=== PATIENT | male | born 1965 | race Caucasian/White ===

== ENCOUNTER 2016-03-29 03:19 | Emergency (ER) | payer OTHER ==
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
[2016-03-29] MEDS ORDERED: MORPHINE SULFATE 10 MG/ML SYRG ONE ×2 (04:29→04:53)
[2016-03-29] MEDS ORDERED: MORPHINE SULFATE 10 MG/ML SYRG IV ONE ×2 (04:40→05:11)
[2016-03-29] MEDS ORDERED: MIDAZOLAM HCL/PF 5 MG/ML VIAL ONE (05:07)
[2016-03-29] MEDS ORDERED: MIDAZOLAM HCL/PF 5 MG/ML VIAL IV ONE (05:11)
[2016-03-29 06:38] VITALS: BP 158/89
== END 2016-03-29 07:39 | disposition home or self-care (01) ==
LOC: ER 03:19
PROC: 0SSGXZZ Reposition Left Ankle Joint, External Approach (ICD-10-PCS; principal; 2016-03-29)
DX: S82.62XA Displaced fracture of lateral malleolus of left fibula, initial encounter for closed fracture (principal); W19.XXXA Unspecified fall, initial encounter; Y92.89 Other specified places as the place of occurrence of the external cause; Y99.0 Civilian activity done for income or pay; K21.9 Gastro-esophageal reflux disease without esophagitis

== ENCOUNTER 2016-04-06 14:22 | Inpatient (IN) | payer OTHER ==
[2016-04-06] MEDS ORDERED: MAG HYDROX/ALUMINUM HYD/SIMETH 30 ML UDC PO PRN (14:39)
[2016-04-06] MEDS ORDERED: ONDANSETRON HCL/PF 2 MG/ML VIAL IV PRN (14:39)
[2016-04-06] MEDS ORDERED: ACETAMINOPHEN 500 MG TABLET PO PRN (14:39)
[2016-04-06] MEDS ORDERED: MAGNESIUM HYDROXIDE 30 ML UDC PO PRN (14:39)
[2016-04-06] MEDS ORDERED: oxyCODONE HCL/ACETAMINOPHEN 1 TAB TABLET PO PRN ×2 (14:39)
[2016-04-06] MEDS ORDERED: PROMETHAZINE HCL 5 MG in DEXTROSE 5 % IN WATER 50 ML IV PRN ×2 (14:39)
[2016-04-06] MEDS ORDERED: MORPHINE SULFATE 2 MG/ML DISP.SYRIN IV PRN (14:39)
[2016-04-06] MEDS ORDERED: PIPERACILLIN SODIUM/TAZOBACTAM 3.375 GM in DEXTROSE 5 % IN WATER 100 ML IV SCH ×2 (14:45)
[2016-04-06] MEDS: NORMAL SALINE 1,000 ML IV PRN ×2 (15:30→22:20)
[2016-04-06] MEDS: NICOTINE 14 MG PATC TD SCH (16:18)
[2016-04-06] MEDS: VANCOMYCIN HCL 1 GM in DEXTROSE 5 % IN WATER 250 ML IV SCH ×2 (16:18)
[2016-04-06] MEDS ORDERED: NORMAL SALINE 1,000 ML IV ONE (18:50)
[2016-04-06] MEDS: LEVOFLOXACIN/D5W 150 ML IV SCH (18:55)
[2016-04-06] MEDS ORDERED: RINGERS SOLUTION,LACTATED 1,000 ML IV ONE (19:30)
--- NOTE | 2016-04-06 20:44 | OR ---
Operative Report - Dictated Report Narrative: Date: 04/06/2016 Surgeon: Matti Arteaga M.D. Train Control Electronic Technician: Doug Frank PA-C Anesthesia: Spinal Preoperative diagnosis: Right unstable trimalleolar ankle fracture with open wound over medial malleolus 2 cm x 2 cm Postoperative diagnosis: Right unstable trimalleolar ankle fracture with open wound over medial malleolus 2 cm x 2 cm Procedure: 1. Irrigation and debridement of left medial ankle wound, skin and subcutaneous tissue 2 cm x 2 cm 2. Placement of uniplanar ankle spanning external fixator 3. Application of wound vac Estimated blood loss: None Tourniquet time: 48 Minutes at 325 millimeters mercury Retained implants: [employer] Jet-X ankle spanning external fixator Specimens: None Complications: None Indications: Everardo is a 50-year-old female who sustained a ground-level fall resulting in a injury to the right ankle. They were seen in the emergency department with images obtained revealing the above injury. He was seen in my clinic a couple days later where he was noted to have severe soft tissue swelling and fracture blistering. He underwent repeat closed reduction in the office with placement of an unna boot and well padded AO splint. He was made strict non- weightbearing and counseled to aggressively elevate the L foot and ankle. He followed up 1 week later and was discovered to have developed a full thickness wound over the medial malleolus. I counseled him that I recommended I&D of his wound with wound vac application and placement of an ankle spanning external fixator to better temporarily stabilize his fracture to allow assessment of his wound and to let his soft tissues better heal until were amenable to definitive fixation. The risks, benefits, and treatment options were discussed with the patient. Risks were reviewed including , blood clots, nerve/tendon/blood vessel injury, wound complications, and need for additional procedures. Procedure: After a timeout, a spinal anesthetic was administered by the anesthesia provider without complication. Beanbag was utilized in order bump the operative leg and a well-padded tourniquet was applied to the operative thigh. The operative leg was placed on a bone foam ramp. The splint was removed and the leg was pre-scrubbed with chlorhexidine then prepped and draped in a standard sterile fashion. Extremity was gravity exsanguinated and tourniquet was inflated. Initial attention was turned to the medial ankle wound, this was full thickness and 2 cm in diameter. There was exposed subcutanous tissue but no exposed bone. The wound was mechanically debrided of non-viable tissue and copiously irrigated with 2 L of normal saline. Attention was then turned to the proximal tibial pins of the external fixator. These were drilled in a bicortical fashion in the proximal aspect of the tibial shaft at the appropriate width to fit the external fixator clamp. Pin depth was checked via fluoroscopy. Next we turned our attention to placing our calcaneal pin using a lateral fluoroscopic image. This was driven across the calcaneus from medial to lateral in the appropriate position. All pin sites were then dressed with Xeroform and 2 inch Mango rolls. The proximal clamp was placed with angled bars attached. 2 bars were then utilized to span the ankle from the proximal clamp bars to the calcaneal pin medial and laterally in an A-frame fashion. The ankle joint was then closed reduced and its position confirmed via fluoroscopy. The reduction was held while all clamps were tightened down. We again checked our reduction on AP and lateral and, after confirmation of our reduction, performed final tightening of all of our clamps. A wound vac sponge approx. 2 cm in diameterwas placed over the medial ankle wound and wound vac suction at 125 mmHg was applied. This demonstrated good seal. The lower leg was then wrapped with Sof-Rol and an Adrien wrap and the tourniquet was deflated. All sponge, sharp, and instrument counts were correct prior to closing. The patient was taken to the PACU in stable condition. Plan: Postoperatively the patient will remain on IV abx for cellulitis about the ankle and his open ankle wound. He will remain non-weightbearing with aggressive elevation of the L leg. Plan will be for definitive fixation of his ankle fracture once his soft tissues are amenable. We will attempt to treat his medial wound with wound vac dressing changes and healing by secondary intention, but I counseled the patient that this may require more definitive soft tissue coverage if it does not look like it's healing.
[2016-04-06] MEDS: SENNOSIDES/DOCUSATE SODIUM 1 TAB TABLET PO SCH (22:26)
[2016-04-06 22:27] LABS: Hematocrit 35.7 % (42.0-52.0); Hemoglobin 12.2 gm/dL (13.5-18.0); Mean Cell Volume 104.4 fl (78-100); Mean Corpuscular Hemoglobin 35.7 pg (27-31); Mean Corpuscular Hgb Conc 34.2 g/dl (32-36); Mean Platelet Volume 9.1 fl (6.0-9.5); Neutrophil # 4.1 K/mm3 (1.3-6.0); Neutrophil % 68.7 % (42-75.0); Platelet Count 193 K/mm3 (150-450); Red Blood Count 3.42 M/mm3 (4.7-6.0); Red Cell Distribution Width 12.6 % (11.5-14.0); White Blood Count 5.9 K/mm3 (4.0-10.5)
[2016-04-06 22:42] LABS: Albumin * 2.1 gm/dl (3.4-5.0); Anion Gap 8.3 mmol/L (6.8-13.8); BUN/Creatinine Ratio 9.1 (9.0-21.6); Bilirubin, Total 0.9 mg/dL (0.0-1.1); Ca. Corrected For Albumin 9.7 mg/dL (8.4-10.2); Calcium * 8.5 mg/dL (7.9-10.9); Carbon Dioxide 29.9 mmol/L (24-32.6); Potassium 4.2 mmol/L (3.4-4.6); Total Protein 6.5 gm/dL (6.2-8.2)
[2016-04-07] MEDS: VANCOMYCIN HCL 1 GM in DEXTROSE 5 % IN WATER 250 ML IV SCH ×4 (03:35→15:20)
[2016-04-07 05:29] LABS: Hematocrit 37.9 % (42.0-52.0); Hemoglobin 13.2 gm/dL (13.5-18.0); Mean Corpuscular Hemoglobin 35.9 pg (27-31); Mean Corpuscular Hgb Conc 34.8 g/dl (32-36); Mean Platelet Volume 9.1 fl (6.0-9.5); Neutrophil # 4.6 K/mm3 (1.3-6.0); Neutrophil % 77.8 % (42-75.0); Platelet Count 184 K/mm3 (150-450); Red Blood Count 3.68 M/mm3 (4.7-6.0); Red Cell Distribution Width 12.5 % (11.5-14.0); White Blood Count 5.9 K/mm3 (4.0-10.5)
[2016-04-07 05:57] LABS: Anion Gap 14.1 mmol/L (6.8-13.8); Calcium * 8.7 mg/dL (7.9-10.9); Carbon Dioxide 25.8 mmol/L (24-32.6); Potassium 3.9 mmol/L (3.4-4.6)
[2016-04-07 05:58] LABS: Albumin * 2.2 gm/dl (3.4-5.0); Ca. Corrected For Albumin 9.8 mg/dL (8.4-10.2); Chol/HDL Risk Ratio 3.5 mg/dL (3.3-5.0); Total Protein 6.9 gm/dL (6.2-8.2)
[2016-04-07 05:59] LABS: Hemoglobin A1C 4.7 % (4.00-6.0)
--- NOTE | 2016-04-07 06:07 | CONS ---
[facility] - General Date of Service: 04/07/16 Narrative: Consulted for medical management Source: patient Exam Limitations: no limitations - History of Present Illness Initial Comments: The 12th of this month fell and fractured left ankle. Had f/u appointment and was found to have fracture blisters from splint. 04/07/16 had an i/d completed with external fixation placed and wound vac. Allergies/Adverse Reactions: Allergies Penicillins Allergy (Verified 03/06/16 20:16) tetanus & diphtheria toxoids Allergy (Verified 03/06/16 20:16) Home Medications: Home Medications Medication Instructions Recorded Last Taken Albuterol Sulfate [Proair Hfa] 1 - 2 puff IH Q4H PRN 03/06/16 Unknown Budesonide/Formoterol Fumarate 2 puff IH BID 03/06/16 Unknown [Symbicort 160-4.5 Mcg Inhaler] Omeprazole [Prilosec] 40 mg PO DAILY 03/06/16 Unknown Loratadine [Claritin] 10 mg PO DAILY 04/06/16 Unknown - Patient's Past Medical History Patient History - Medical: Anxiety, GERD Patient History - Cardiac/Respiratory: Asthma Patient History - Cancer: No Hx of Cancer Patient History - Surgical Procedures: T & A, Other - i/d of ankle 04/07/16 Patient History - Other: None - Family History Grandfather-Paternal Family History - Medical: Family History - Cardiac/Respiratory: Coronary Heart Disease, COPD, Myocardial Infarction Family History - Cancer: No pertinent family hx Grandfather-Maternal Family History - Medical: Family History - Cardiac/Respiratory: Coronary Heart Disease Family History - Cancer: No pertinent family hx Father Family History - Medical: Diabetes Type 2 Insulin Dependent Family History - Cardiac/Respiratory: No pertinent hx Family History - Cancer: No pertinent family hx - Social History Living Situations: home Does anyone smoke in the home?: No Smoking Status: Never smoker Have you smoked in the past 12 months: No Do you dip or chew tobacco: Yes Patient requests Smoking Cessation Consult: Yes Initiate information on Smoking Cessation: Yes Alcohol Use: heavy - case a day-states has decreased to a couple beers a day Drug Use: none - Immunizations Immunizations Up to Date: Yes Hx Pneumococcal Vaccination: No History of Influenza Vaccine: No Medications - Medications Current Medications: Current Medications Sodium Chloride (Sodium Chloride 0.9%) 1,000 mls @ 125 mls/hr IV .Q8H PRN PRN Reason: HYDRATION Stop: 05/06/16 14:44 Last Admin: 04/06/16 22:20 Dose: 125 mls/hr Vancomycin HCl 1 gm/ Dextrose/ (Water) 250 mls @ 140 mls/hr IV Q12H [facility] PRN Reason: Protocol Stop: 05/06/16 15:31 Last Admin: 04/07/16 03:35 Dose: 140 mls/hr Levofloxacin/Dextrose (Levaquin) 150 mls @ 100 mls/hr IV Q24H [facility] Stop: 05/06/16 17:01 Last Admin: 04/06/16 18:55 Dose: 150 mls Nicotine (Nicoderm) 14 mg TD Q24H [facility] Stop: 05/06/16 16:01 Last Admin: 04/06/16 16:18 Dose: 14 mg Oxycodone/Acetaminophen (Percocet 5 Mg/325 Mg) 1 tab PO Q4H PRN PRN Reason: Moderate Pain Stop: 05/06/16 14:40 Last Admin: 04/07/16 05:12 Dose: 1 tab Oxycodone/Acetaminophen (Percocet 5 Mg/325 Mg) 2 tab PO Q4H PRN PRN Reason: Moderate Pain Stop: 05/06/16 14:40 Last Admin: 04/06/16 17:52 Dose: 2 tab Senna/Docusate Sodium (Senokot-S) 2 tab PO HS [facility] Stop: 05/06/16 21:01 Last Admin: 04/06/16 22:26 Dose: Not Given Review of Systems - Review of Systems Generalized/Overall Review: Present: No Symptoms Reported EENTM: Present: No Symptoms Reported Respiratory: Present: No Symptoms Reported Cardiac: Present: No Symptoms Reported Abdominal: Present: No Symptoms Reported Genitourinary: Present: No Symptoms Reported Musculoskeletal: Present: Other - left ankle pain, swelling, and eccymossis to toes Neurological: Present: No Symptoms Reported Skin: Present: No Symptoms Reported Physical Examination - Exam Vital Signs: Vital Signs - Last Taken Temp 37.2 C 04/07/16 04:03 Pulse 95 04/07/16 05:00 Resp 18 04/07/16 05:00 BP 151/94 04/07/16 05:00 Pulse Ox 98 RA 04/07/16 05:00 O2 Oxygen Delivery Method Room Air Constitutional: Present: Alert, Oriented x3, Cooperative, No distress ENT Exam: Present: normal ENT inspection, hearing grossly normal Eye Exam: bilateral eye: normal inspection, PERRL Respiratory: Present: chest non-tender, lungs clear, no respiratory distress, decreased breath sounds Cardiovascular/Chest: Present: normal peripheral pulses, regular rate, rhythm, no chest tenderness, no edema, no murmur Peripheral Pulses: dorsalis-pedis (R): 2+, dorsalis-pedis (L): 2+, radial (R): 2 +, radial (L): 2+ Abdomen: Present: Normal bowel sounds, soft, nontender, nondistended, no rebound tenderness Extremity: Present: normal range of motion, normal capillary refill, lower extremity edema, leg pain, other - left ankle in external fixation, wound vac in place. Eccoymosis noted to toes Skin Exam: Present: normal color, warm/dry, no cyanosis Neurologic: Present: no motor/sensory deficits, alert, oriented x 3 Appearance: Present: appropriate appearance, appropriate insight, neat Eye contact: Present: cooperative, good eye contact Thoughts: Present: normal thought pattern, no apparent hallucination - Results and Findings: Lab/Microbiology results last 24 hrs: Abnormal/Pending Laboratory Last 24 HRS 04/07/16 04/07/16 04/06/16 05:12 05:12 22:11 RBC 3.68 L Hgb 13.2 L Hct 37.9 L MCV 103.0 H MCH 35.9 H Immature Gran % (Auto) 0.50 H Immature Gran # (Auto) Neutrophils % 77.8 H Lymphocytes % 7.4 L Monocytes % 12.2 H Lymphocytes # 0.4 L Anion Gap 14.1 H Albumin 2.2 L 2.1 L LDL Cholesterol 63 L HDL Cholesterol 30 L 04/06/16 22:11 RBC 3.42 L Hgb 12.2 L Hct 35.7 L MCV 104.4 H MCH 35.7 H Immature Gran % (Auto) 0.70 H Immature Gran # (Auto) 0.04 H Neutrophils % Lymphocytes % 11.3 L Monocytes % 16.5 H Lymphocytes # 0.7 L Anion Gap Albumin LDL Cholesterol HDL Cholesterol - Assessments/Findings (1) Fracture dislocation of ankle joint Diagnosis(s): Ankle fracture managed by Dr. Arteaga. Question if pt is diabetic. HgA1c 4.7, all glucoses have been within normal limits. All other laboratory findings without abnormality. Will continue to follow per request. Problem: Acute Qualifiers: Encounter type: initial encounter Fracture type: closed Laterality: left Qualified Code(s): S82.892A - Other fracture of left lower leg, initial encounter for closed fracture
--- NOTE | 2016-04-07 13:45 | PN ---
Subjective - Date and Time Seen Date: 04/07/16 Subjective Narrative: No acute events overnight. Pain controlled. No other complaints this am. Objective - Vitals Vitals: Last Vital Signs Temp 36.5 C 04/07/16 11:18 Pulse 89 04/07/16 11:18 Resp 18 04/07/16 11:18 BP 132/75 04/07/16 11:18 Pulse Ox 94 04/07/16 11:18 - Abnormal Lab Findings Abnormal Lab Findings: Abnormal Lab Results 04/06/16 04/06/16 04/07/16 Range/Units 22:11 22:11 05:12 RBC 3.42 L 3.68 L (4.7-6.0) M/mm3 Hgb 12.2 L 13.2 L (13.5-18.0) gm/dL Hct 35.7 L 37.9 L (42.0-52.0) % MCV 104.4 H 103.0 H (78-100) fl MCH 35.7 H 35.9 H (27-31) pg Immature Gran % (Auto) 0.70 H 0.50 H (0.001-0.429) % Immature Gran # (Auto) 0.04 H (0.000-0.0310) K/mm3 Neutrophils % 77.8 H (42-75.0) % Lymphocytes % 11.3 L 7.4 L (20-51) % Monocytes % 16.5 H 12.2 H (0.0-9) % Lymphocytes # 0.7 L 0.4 L (1.5-3.5) k/mm3 Anion Gap (6.8-13.8) mmol/L Albumin 2.1 L (3.4-5.0) gm/dl LDL Cholesterol (70-130) mg/dL HDL Cholesterol (40-60) mg/dL 04/07/16 Range/Units 05:12 RBC (4.7-6.0) M/mm3 Hgb (13.5-18.0) gm/dL Hct (42.0-52.0) % MCV (78-100) fl MCH (27-31) pg Immature Gran % (Auto) (0.001-0.429) % Immature Gran # (Auto) (0.000-0.0310) K/mm3 Neutrophils % (42-75.0) % Lymphocytes % (20-51) % Monocytes % (0.0-9) % Lymphocytes # (1.5-3.5) k/mm3 Anion Gap 14.1 H (6.8-13.8) mmol/L Albumin 2.2 L (3.4-5.0) gm/dl LDL Cholesterol 63 L (70-130) mg/dL HDL Cholesterol 30 L (40-60) mg/dL - Exam Exam Narrative: Gen: A&O x4, NAD Resp: breathing nonlabored MSK: LLE--> ankle ex fix in place, wound vac holding suction, able to flex/ extend all toes, SILT, cap refill brisk Assessment/Plan Plan Narrative: 50 yo M w/ unstable trimalleolar ankle fracture and open medial ankle wound with concern for cellulitis, s/p I&D, ex fix placement, and wound vac 04/06/16. - NWB, aggressive elevation - reg diet - oral pain meds - continue abx - Plan: will likely d/c with wound vac Saturday and oral abx, plan to f/u with me periodically until soft tissues are amenable to definitive surgical fixation of his ankle fracture. - dispo: continue inpatient care
[2016-04-07] MEDS: NICOTINE 14 MG PATC TD SCH (15:21)
[2016-04-07] MEDS: LEVOFLOXACIN/D5W 150 ML IV SCH (17:24)
[2016-04-07] MEDS: NORMAL SALINE 1,000 ML IV PRN (19:03)
[2016-04-07] MEDS ORDERED: ALBUTEROL SULFATE 200 PUFF INHALER IH PRN (20:20)
[2016-04-07] MEDS ORDERED: CYCLOBENZAPRINE HCL 10 MG TABLET PO PRN (20:20)
[2016-04-07] MEDS: SENNOSIDES/DOCUSATE SODIUM 1 TAB TABLET PO SCH (20:21)
[2016-04-07] MEDS ORDERED: FLUTICASONE/SALMETEROL 14 PUFF DISK.W.DEV IH SCH (21:00)
--- NOTE | 2016-04-08 02:28 | PN ---
Subjective - Date and Time Seen Date: 04/08/16 Time: 06:36 Subjective Narrative: Pt without any issues over night. Accu checks dc'd pt refused and all have been within normal limits. Dr. Arteaga following for ankle fx. Objective - Review of Systems Generalized/Overall Review: Reports: No Symptoms Reported EENTM: Reports: No Symptoms Reported Respiratory: Reports: No Symptoms Reported Cardiac: Reports: No Symptoms Reported Abdominal: Reports: No Symptoms Reported Genitourinary Symptoms: Reports: No Symptoms Reported Musculoskeletal Complaints: Reports: Joint Swelling - ankle pain and swelling Neurological: Reports: No Symptoms Reported Skin: Reports: No Symptoms Reported Endocrine: Reports: No Symptoms Reported - Vitals Vitals: Last Vital Signs Temp 36.1 C L 04/07/16 19:39 Pulse 91 04/07/16 19:39 Resp 16 04/07/16 19:39 BP 149/90 04/07/16 19:39 Pulse Ox 96 04/07/16 19:39 - Abnormal Lab Findings Abnormal Lab Findings: Abnormal Lab Results 04/07/16 04/07/16 Range/Units 05:12 05:12 RBC 3.68 L (4.7-6.0) M/mm3 Hgb 13.2 L (13.5-18.0) gm/dL Hct 37.9 L (42.0-52.0) % MCV 103.0 H (78-100) fl MCH 35.9 H (27-31) pg Immature Gran % (Auto) 0.50 H (0.001-0.429) % Neutrophils % 77.8 H (42-75.0) % Lymphocytes % 7.4 L (20-51) % Monocytes % 12.2 H (0.0-9) % Lymphocytes # 0.4 L (1.5-3.5) k/mm3 Anion Gap 14.1 H (6.8-13.8) mmol/L Albumin 2.2 L (3.4-5.0) gm/dl LDL Cholesterol 63 L (70-130) mg/dL HDL Cholesterol 30 L (40-60) mg/dL - Exam Constitutional: Present: Alert, Oriented x3, Cooperative, No distress ENT Exam: Present: normal ENT inspection, hearing grossly normal Respiratory: Present: chest non-tender, lungs clear, normal breath sounds, no respiratory distress, decreased breath sounds Cardiovascular/Chest: Present: normal peripheral pulses, regular rate, rhythm, no chest tenderness, no edema, no murmur Abdomen: Present: Normal bowel sounds, soft, nontender, nondistended, no rebound tenderness Extremity: Present: no calf tenderness, normal capillary refill, lower extremity edema, swelling Skin Exam: Present: normal color, warm/dry, no cyanosis Lymphatic: Present: no adenopathy Neurologic: Present: no motor/sensory deficits, alert, normal mood/affect, oriented x 3 Appearance: Present: appropriate appearance, appropriate insight, neat Eye contact: Present: cooperative, good eye contact, normal speech Thoughts: Present: normal thought pattern, no apparent hallucination Assessment/Plan - Problems/Diagnosis (1) Fracture dislocation of ankle joint Problem: Acute Qualifiers: Encounter type: initial encounter Fracture type: closed Laterality: left Qualified Code(s): S82.892A - Other fracture of left lower leg, initial encounter for closed fracture Narrative: No acute medical needs at this time, will continue to follow for any further medical needs. Ankle fracture followed by Dr. Arteaga, will continue to follow his orders.
[2016-04-08] MEDS: VANCOMYCIN HCL 1 GM in DEXTROSE 5 % IN WATER 250 ML IV SCH ×2 (03:32)
[2016-04-08 05:21] LABS: Hematocrit 35.7 % (42.0-52.0); Hemoglobin 12.3 gm/dL (13.5-18.0); Mean Cell Volume 103.2 fl (78-100); Mean Corpuscular Hemoglobin 35.5 pg (27-31); Mean Corpuscular Hgb Conc 34.5 g/dl (32-36); Mean Platelet Volume 9.1 fl (6.0-9.5); Platelet Count 173 K/mm3 (150-450); Red Blood Count 3.46 M/mm3 (4.7-6.0); Red Cell Distribution Width 12.5 % (11.5-14.0); White Blood Count 4.7 K/mm3 (4.0-10.5)
[2016-04-08 05:32] LABS: Anion Gap 12.9 mmol/L (6.8-13.8); BUN/Creatinine Ratio 7.9 (9.0-21.6); Calcium * 8.6 mg/dL (7.9-10.9); Carbon Dioxide 26.3 mmol/L (24-32.6); Estimated Creat Clear 107.8; Potassium 4.2 mmol/L (3.4-4.6)
[2016-04-08] MEDS ORDERED: FLUTICASONE/SALMETEROL 14 PUFF DISK.W.DEV IH SCH (07:00)
[2016-04-08] MEDS: PANTOPRAZOLE SODIUM 40 MG TABLET.EC PO SCH (07:27)
--- NOTE | 2016-04-08 08:57 | PN ---
Subjective - Date and Time Seen Date: 04/08/16 Subjective Narrative: Pain improving. No other complaints. Objective - Vitals Vitals: Last Vital Signs Temp 36.8 C 04/08/16 08:14 Pulse 84 04/08/16 08:14 Resp 20 04/08/16 08:14 BP 149/92 04/08/16 08:14 Pulse Ox 96 04/08/16 08:14 - Abnormal Lab Findings Abnormal Lab Findings: Abnormal Lab Results 04/08/16 04/08/16 Range/Units 05:05 05:05 RBC 3.46 L (4.7-6.0) M/mm3 Hgb 12.3 L (13.5-18.0) gm/dL Hct 35.7 L (42.0-52.0) % MCV 103.2 H (78-100) fl MCH 35.5 H (27-31) pg BUN/Creatinine Ratio 7.9 L (9.0-21.6) Random Glucose 111 H (70-110) mg/dL - Exam Exam Narrative: Gen: A&O x4, NAD Resp: breathing nonlabored MSK: LLE--> ankle ex fix in place, wound vac holding suction, able to flex/ extend all toes, SILT, cap refill brisk, erythema of foot improving Assessment/Plan Plan Narrative: 50 yo M w/ unstable trimalleolar ankle fracture and open medial ankle wound with concern for cellulitis, s/p I&D, ex fix placement, and wound vac 04/06/16. - NWB, aggressive elevation - reg diet - oral pain meds - continue abx - cellulitis improving - continue wound vac - will likely change tomorrow - Plan: will likely d/c with wound vac Saturday and oral abx, plan to f/u with me periodically until soft tissues are amenable to definitive surgical fixation of his ankle fracture. - dispo: continue inpatient care - Problems/Diagnosis (1) Cellulitis Problem: Acute (2) Open ankle wound Problem: Acute (3) Fracture dislocation of ankle joint Problem: Acute Qualifiers: Encounter type: initial encounter Fracture type: closed Laterality: left Qualified Code(s): S82.892A - Other fracture of left lower leg, initial encounter for closed fracture
[2016-04-08] MEDS: LORATADINE 10 MG TABLET PO SCH (09:19)
[2016-04-08] MEDS: DEXTROSE 5% IV SCH ×2 (14:19)
[2016-04-08] MEDS: VANCOMYCIN HCL IV SCH ×2 (14:19)
[2016-04-08] MEDS: WATER IV SCH ×2 (14:19)
[2016-04-08] MEDS: NICOTINE 14 MG PATC TD SCH (15:19)
[2016-04-08] MEDS: LEVOFLOXACIN/D5W 150 ML IV SCH (18:17)
[2016-04-08] MEDS: FLUTICASONE/SALMETEROL 14 PUFF DISK.W.DEV IH SCH (18:52)
[2016-04-08] MEDS: SENNOSIDES/DOCUSATE SODIUM 1 TAB TABLET PO SCH (21:24)
[2016-04-09] MEDS: DEXTROSE 5% IV SCH ×4 (03:07→14:22)
[2016-04-09] MEDS: WATER IV SCH ×4 (03:07→14:22)
[2016-04-09] MEDS: VANCOMYCIN HCL IV SCH ×4 (03:07→14:22)
[2016-04-09] MEDS: PANTOPRAZOLE SODIUM 40 MG TABLET.EC PO SCH (07:11)
[2016-04-09] MEDS: FLUTICASONE/SALMETEROL 14 PUFF DISK.W.DEV IH SCH (07:12)
[2016-04-09] MEDS: LORATADINE 10 MG TABLET PO SCH (08:53)
[2016-04-09 15:47] VITALS: BP 141/86
[2016-04-09] MEDS: NICOTINE 14 MG PATC TD SCH (16:15)
--- NOTE | 2016-04-12 18:07 | DS ---
(1) Cellulitis Problem: Acute (2) Open ankle wound Problem: Acute (3) Fracture dislocation of ankle joint Problem: Acute Qualifiers: Encounter type: initial encounter Fracture type: closed Laterality: left Qualified Code(s): S82.892A - Other fracture of left lower leg, initial encounter for closed fracture Description of Stay: The patient was admitted from clinic on 04/06/2016 with a left trimalleolar ankle fracture with associated medial open wound and cellulitis of the foot. He was taken to the operating room for irrigation and debridement of his medial ankle wound with placement of an ankle spanning external fixator and application of wound VAC. He tolerated the procedure well and there were no complications. He was transferred back to the floor postoperatively. He was placed on broad-spectrum IV antibiotics for his cellulitis which improved throughout his hospital stay and he was able to be transitioned to oral antibiotics at discharge. Labs and vitals were checked throughout his inpatient stay and noted to be stable. Pain was controlled with oral pain medications. The patient resumed a normal diet as well as normal bladder and bowel function. PT and OT consult and the patient made gains. He was deemed stable for discharge home with home health on 04/08/2016 with a plan for Saturday wound VAC changes and close follow-up in clinic to monitor the status of his wound and the status of his swelling. Procedures Performed: see notes below List Procedures: 1. I&D of left medial ankle wound 2. Placement of ankle spanning external fixator 3. Application of wound vac Discharge Disposition: Home self care - with Home health care Disposition: Home self-care Condition: Good Discharge Activity: Non-Weight bearing - with aggressive elevation of L foot. Discharge Diet: General/regular food Problem Oriented Discharge Instructions to Patient/Family: How to Prevent Pressure Injuries, Ankle Fracture, [id number] Additional Patient Instructions (free text): Orthopedic Instructions: 1. Non-weight bearing to left leg, elevation, do not leave leg in downward position for greater than 10 minutes. 2. Leave wound vac in place - will be changed at his clinic visit on 04/11/16 at 3:15. Will plan for vac changes every M/W/F following that. 3. Take antibiotics as prescribed 4. Percocet for pain. 5. Will reassess soft tissue swelling on 04/11/16 to determine timing for definitive fixation of fracture. Prescriptions (Any new or edited meds): Levofloxacin [Levaquin] 750 mg PO DAILY #7 tablet Sennosides/Docusate Sodium [Senokot-S] 2 tab PO HS #60 tablet Sulfamethoxazole/Trimethoprim [Bactrim Ds] 1 tab PO BID #14 tab oxyCODONE HCL/ACETAMINOPHEN [Percocet 5 MG/325 MG] 1 - 2 tab PO Q4H PRN #60 tablet PRN Reason: Moderate Pain Complete Home Medications List: Complete Home Medication List: Albuterol Sulfate [Proair Hfa] 1 - 2 puff IH Q4H PRN 03/06/16 Budesonide/Formoterol Fumarate [Symbicort 160-4.5 Mcg Inhaler] 2 puff IH BID Omeprazole [Prilosec] 40 mg PO DAILY 03/06/16 Cyclobenzaprine HCl [Flexeril] 10 mg PO TID PRN #30 tab 03/29/16 Loratadine [Claritin] 10 mg PO DAILY 04/06/16 Levofloxacin [Levaquin] 750 mg PO DAILY #7 tablet 04/09/16 Sennosides/Docusate Sodium [Senokot-S] 2 tab PO HS #60 tablet 04/09/16 Sulfamethoxazole/Trimethoprim [Bactrim Ds] 1 tab PO BID #14 tab 04/09/16 oxyCODONE HCL/ACETAMINOPHEN [Percocet 5 MG/325 MG] 1 - 2 tab PO Q4H PRN #60 tablet 04/09/16
== END 2016-04-09 16:45 | disposition home health service (06) | DRG 493 ==
LOC: MS 14:22
PROVIDERS: ADMIT Orthopaedic Surgery; ATTEND Orthopaedic Surgery
PROC: 0QHH35Z Insertion of External Fixation Device into Left Tibia, Percutaneous Approach (ICD-10-PCS; 2016-04-06)
PROC: 0JDR0ZZ Extraction of Left Foot Subcutaneous Tissue and Fascia, Open Approach (ICD-10-PCS; principal; 2016-04-06 17:00)
DX: S82.852A Displaced trimalleolar fracture of left lower leg, initial encounter for closed fracture (principal); L03.116 Cellulitis of left lower limb; S91.002A Unspecified open wound, left ankle, initial encounter; W01.0XXA Fall on same level from slipping, tripping and stumbling without subsequent striking against object, initial encounter; Y92.89 Other specified places as the place of occurrence of the external cause; J44.9 Chronic obstructive pulmonary disease, unspecified; J45.40 Moderate persistent asthma, uncomplicated; F17.220 Nicotine dependence, chewing tobacco, uncomplicated; I10 Essential (primary) hypertension; K21.9 Gastro-esophageal reflux disease without esophagitis

== ENCOUNTER 2016-04-19 07:49 | Day surgery (SDC) | payer OTHER ==
[~2016-04-19 07:49] MED LIST: ACETAMINOPHEN 500 MG TABLET PO PRN; CLINDAMYCIN PHOSPHATE 900 MG in DEXTROSE 5 % IN WATER 100 ML IV PRN; HYDROmorphone HCL 2 MG/ML VIAL IV PRN; MAG HYDROX/ALUMINUM HYD/SIMETH 30 ML UDC PO PRN; MAGNESIUM HYDROXIDE 30 ML UDC PO PRN; ONDANSETRON HCL/PF 2 MG/ML VIAL IV PRN; PROMETHAZINE HCL 25 MG in DEXTROSE 5 % IN WATER 50 ML IV PRN; RINGERS SOLUTION,LACTATED 1,000 ML IV PRN; ZOLPIDEM TARTRATE 5 MG TABLET PO PRN; diphenhydrAMINE HCL 50 MG/ML VIAL IV PRN; oxyCODONE HCL/ACETAMINOPHEN 1 TAB TABLET PO PRN
[2016-04-19] MEDS ORDERED: BUPIVACAINE HCL/EPINEPHRINE 50 ML VIAL IJ ONE ×2 (11:15)
[2016-04-19] MEDS ORDERED: RINGERS SOLUTION,LACTATED 1,000 ML IV ONE (12:05)
--- NOTE | 2016-04-19 13:26 | OR ---
Operative Report - Dictated Report Narrative: Date: 04/19/2016 Surgeon: Matti Arteaga M.D. Printer'S Assistant: Doug Frank PA-C Anesthesia: General plus local anesthetic Preoperative diagnosis: Left trimalleolar ankle fracture, medial ankle wound measuring 2 x 2 centimeters. Postoperative diagnosis: Left trimalleolar ankle fracture, medial ankle wound measuring 2 x 2 centimeters Procedure: 1. Open reduction internal fixation left trimalleolar ankle fracture. 2. Removal of external fixator left ankle 3. Debridement of medial ankle wound, skin and subcutaneous tissue measuring 2 x 2 centimeters Estimated blood loss: None Tourniquet time: 94 Minutes at 325 millimeters mercury Retained implants: [employer] 3.5 mm 7-hole one third tubular plate with associated screws on the fibula, 3.5 mm 4 hole one third tubular plate and associated screws on the posterior malleolus Specimens: None Complications: None Indications: Everardo is a 50-year-old male who fell out of a guard shack resulting in an injury to the left ankle. They were seen in the emergency department with images obtained revealing the above injury. They were seen in clinic where he was noted to have severe swelling and fracture blistering as well as a concerning area of skin with poor cap refill over his medial malleolus. He was initially placed in an unna boot and splint to help control swelling, however, when he returned to clinic the following week, he had developed a full thickness wound over the medial malleolus. The decision was made at that time to take him to the OR for external fixator placement and debridement with wound vac placement of the medial ankle wound. He has been followed in clinic and undergone M/W/F wound vac changes until his soft tissues were amenable to definitive surgical fixation. The risks, benefits, and treatment options were discussed with the patient and the plan for open reduction internal fixation with debridement of his medial ankle wound was discussed. Risks were reviewed including , blood clots, nerve/tendon/blood vessel injury, malunion, nonunion, failure of implants, prominent implants, arthrosis, persistent pain, need for additional procedures. Procedure: After a timeout, general anesthetic was administered. While still on the transport cart, the external fixator was removed. The pin sites were thoroughly irrigated using normal saline and a 60 mL syringe with an 18-gauge angiocatheter. The leg was pre-scrubbed with chlorhexidine and a tourniquet was placed around the thigh. The patient was then flipped to the prone position on the operating table with all bony prominences well-padded. The operative extremity was then prepped and draped in usual sterile fashion. Extremity was exsanguinated and tourniquet was inflated. Attention was turned to the posterior lateral aspect of the ankle. A posterolateral incision was made just posterior to the border of the fibula approximately 12 cm in length. A combination of blunt dissection and electrocautery was carried down through subcutaneous tissues being careful to protect the sural nerve. The peroneal fascia was identified and incised with a sharp knife over the lateral border of the fibula centered over her fracture site. A sharp knife was used to dissect out the fracture site. The fracture site was then thoroughly debrided of all soft tissue using a pituitary rongeur and a knife. The fibula fracture was then brought out to length and held reduced with [id number] bone reduction clamps. As the patient was 3 weeks out from injury it was extremely difficult gaining length back however we were able to get it back out to length and reduce it into an acceptable position. A 7-hole 3.5 mm one third tubular plate was then placed in an anti-glide fashion posteriorly with 2 screws in the distal fragment and 3 screws in the proximal shaft. Our reduction and placement of our plate and screws was confirmed via fluoroscopy. Attention was then turned to the posterior malleolus. The interval between the peroneals and the flexor hallucis longus was identified and the overlying fascia was sharply incised with a knife. Blunt finger dissection was used to develop the interval between the peroneals and the flexor hallucis longus. The FHL was retracted medially revealing the distal aspect of the posterior tibia. A sharp knife was used to incise the periosteum and reveal our posterior malleolar fragment. Care was taken not to injure the posterior syndesmotic ligaments. The posterior malleolar fragment was retracted away from the fracture site and the fracture site was thoroughly debrided using a pituitary rongeur. Several large pieces of articular cartilage were trapped within the fracture site and these were removed. The posterior malleolar fragment was then reduced into place with a ball spike pusher and temporally temporarily fixed with a 2 mm K wire. A 3.5 mm 4 hole one third tubular plate was then placed in a buttress fashion with the first screw placed at the apex of the fracture site and additional proximal screw as well as one distal screw through the fracture fragment. The fracture reduction, position of the plate and length of the screws were all confirmed via fluoroscopy. We were very happy with the reduction at this point. The ankle was taken through a full range of motion. The ankle was stable to external rotation stress testing. Final fluoroscopic images were taken. Attention was then turned to the wound overlying the medial malleolus. It was noted to have abundant granulation tissue in the base of the wound. A sharp knife was used to debride any fibrinous and nonviable looking tissue in the wound bed. The wounds were then copiously irrigated with normal saline. Deep fascia was repaired over the implants utilizing 0 Vicryl. The skin was closed utilizing 3-0 Vicryl in an interrupted deep dermal fashion followed by interrupted 4-0 nylon in a horizontal mattress fashion. The medial wound was then dressed with Xeroform and 4 x 4's. The posterolateral wound was sealed with Dermabond and dressed with Xeroform, 4 x 4's, soft roll, and a well-padded AO splint was applied. Patient was then awoken and transferred to postanesthesia care in stable condition. All sponge, sharp, and instrument counts were correct prior to closing the wounds.
[2016-04-19] MEDS ORDERED: ALBUTEROL SULFATE 0.63 MG/3 ML VIAL.NEB IH ONE (14:25)
[2016-04-19] MEDS ORDERED: ALBUTEROL SULFATE 2.5 MG/0.5 ML VIAL.NEB IH ONE (14:30)
[2016-04-19 15:28] VITALS: BP 131/92
[2016-04-19] MEDS ORDERED: SENNOSIDES/DOCUSATE SODIUM 1 TAB TABLET PO SCH (21:00)
== END 2016-04-19 07:50 | disposition home or self-care (01) ==
LOC: AMB 07:49
PROVIDERS: ATTEND Orthopaedic Surgery
PROC: 0QSH04Z Reposition Left Tibia with Internal Fixation Device, Open Approach (ICD-10-PCS; 2016-04-19)
PROC: 0JBP0ZZ Excision of Left Lower Leg Subcutaneous Tissue and Fascia, Open Approach (ICD-10-PCS; 2016-04-19)
PROC: 0JQP0ZZ Repair Left Lower Leg Subcutaneous Tissue and Fascia, Open Approach (ICD-10-PCS; 2016-04-19)
PROC: 0QSK04Z Reposition Left Fibula with Internal Fixation Device, Open Approach (ICD-10-PCS; principal; 2016-04-19 10:30)
DX: S82.852A Displaced trimalleolar fracture of left lower leg, initial encounter for closed fracture (principal); S91.002A Unspecified open wound, left ankle, initial encounter; I10 Essential (primary) hypertension; J45.909 Unspecified asthma, uncomplicated; J44.9 Chronic obstructive pulmonary disease, unspecified; F41.1 Generalized anxiety disorder; K21.9 Gastro-esophageal reflux disease without esophagitis; F17.200 Nicotine dependence, unspecified, uncomplicated; Z68.42 Body mass index [BMI] 45.0-49.9, adult